=== PATIENT | male | born 1975 | race African-American/Black ===

== ENCOUNTER 2016-09-08 16:09 | Emergency (ER) | payer MEDICAID | END 2016-09-08 16:54 | disposition home or self-care (01) | LOC: CFTX 16:09 | DX: S39.012A Strain of muscle, fascia and tendon of lower back, initial encounter (principal); X58.XXXA Exposure to other specified factors, initial encounter; Y92.89 Other specified places as the place of occurrence of the external cause | CPT/HCPCS: 96372; 99283; J1885 ==

== ENCOUNTER 2016-09-27 11:35 | Emergency (ER) | payer MEDICAID ==
--- NOTE | ~2016-09-27 | US85 ---
[facility] A Service of [facility] RADIOLOGY TEXT RESULTS PATIENT: ROBERTA CORTEZ LOCATION: CFTX : 73 UNIT #: [id number] AGE: [address]: Lory Payton APRN SEX: M ORDER DR: [id number] [facility] [address] [place], [place] [address] [id number] MR#: [id number] #: [id number] NAME: ROBERTA CORTEZ : 1975 SEX: M STUDY DATE/TIME: 09/27/2016 14:47 UNIT: [facility] ROOM: STUDY DESCRIPTION: [facility] Attending Physician: Lory Payton A.P.R.N. Ordering Physician: Ed Doctor [id number] [facility] Primary Care Physician: Primary Care Physician No MEDICAL IMAGING REPORT This report is preliminary unless electronic signature is present EXAM Left lower extremity venous duplex, 09/27/2016 HISTORY Left calf pain for 6 days. Evaluate for deep vein thrombosis. TECHNIQUE Venous ultrasound examination of the left lower extremity was performed using grayscale, spectral Doppler and color flow Doppler imaging. FINDINGS The examination is negative. There is no evidence of left lower extremity deep venous thrombus from the groin to the lower calf. Visualized greater saphenous vein is also patent. IMPRESSION Negative examination. No evidence of left lower extremity deep venous thrombosis. Dictated by... Naveen Kimball M.D. THIS IS AN ELECTRONICALLY VERIFIED REPORT Naveen Kimball M.D. at 09/28/2016 8:08 AM Pallavi TD: 09/27/2016 16:33 JOB #: [id number] MEDICAL IMAGING REPORT Page 1 of 1 COPY
[2016-09-27 14:27] LABS: BASOPHIL% 0.9 % (0-2.5); EOSINOPHIL% 0.7 % (0.0-7.0); HEMATOCRIT 48.4 % (38.0-50.0); HEMOGLOBIN 16.3 gm/dL (13.0-16.0); LYMPHOCYTE# 2.1 X10e3 (1.0-3.5); LYMPHOCYTE% 46.4 % (17.0-45.0); MEAN CELL VOLUME 86.3 FL (83-96); MEAN CORPUSCULAR HEMOGLOBIN 29.1 PG (28-34); MEAN CORPUSCULAR HGB CONC 33.7 g/dL (30-36); MEAN PLATELET VOLUME 7.7 FL (6.5-11.5); MONOCYTE# 0.5 X10e3 (0-1.0); MONOCYTE% 11.4 % (3.0-12.0); NEUTROPHIL# 1.8 X10e3 (1.5-7.1); NEUTROPHIL% 40.6 % (40-75); PLATELET COUNT 176 X10e3 (140-420); RED BLOOD COUNT 5.61 X10e (3.90-5.60); RED CELL DISTRIBUTION WIDTH 12.8 % (11.0-15.5); WHITE BLOOD COUNT 4.6 X10e3 (4.0-10.5)
[2016-09-27 14:41] LABS: DIFF IND NO
[2016-09-27 14:52] LABS: BUN/CREATININE RATIO 13.75; CALCIUM SERUM 9.6 mg/dL (8.4-10.2); CREATININE SERUM 0.8 mg/dL (0.6-1.4); GLOM FILT RATE Estimated 127.8 mL/min (>60)
[2016-09-27 15:07] LABS: PARTIAL THROMBOPLASTIN TIME 27.4 SECONDS (23.5-31.3); PROTHROMBIN TIME (PATIENT) 10.9 SECONDS (9.6-11.5)
== END 2016-09-27 16:18 | disposition home or self-care (01) ==
LOC: CED 11:35 → CFTX 11:35
PROVIDERS: Nurse Practitioner
DX: M79.652 Pain in left thigh (principal); M79.662 Pain in left lower leg
CPT/HCPCS: 80048; 85025; 85610; 85730; 93971; 96372; 99284; J1885